=== PATIENT | male | born 1960 | race Caucasian/White ===

== ENCOUNTER 2018-04-08 19:31 | Emergency (ER) | payer OTHER ==
[~2018-04-08] VITALS: Ht 188 cm; Wt 64.0 kg
[~2018-04-08 19:31] MED LIST: CITALOPRAM HBR10 MG PO; COMPAZINE10 MG PO; MARINOL10 MG PO; METOPROLOL SUCC50 MG PO; OMEPRAZOLE40 M1 PO; ONDANSETRON HCL4 MG PO; PROBIOTIC1 EAC4 PO; TRAMADOL HCL50 MG PO; TRAZODONE HCL100 MG PO; [UNRECOGNIZED DRUG - REMARK]
[2018-04-08 20:11] LABS: HEMATOCRIT 43.6 % (38.0-50.0); MCHC 34.4 G/DL (30.0-36.0); MCV 90.1 FL (86-99); PLATELET COUNT 267 K/uL (156-360); RBC DIS.WIDTH-CV 16.2 % (11.8-14.6); RED BLOOD COUNT 4.84 M/uL (4.00-5.50); WHITE BLOOD COUNT 12.8 K/uL (4.1-10.2)
[2018-04-08 20:31] LABS: ALBUMIN 3.4 g/dL (3.2-4.8)
[2018-04-08 20:32] LABS: CHLORIDE 98 mEq/L (99-109); POTASSIUM 4.2 mEq/L (3.7-5.4); SODIUM 138 mEq/L (136-147)
[2018-04-08 20:34] LABS: GLUCOSE 112 mg/dL (70-99); TOTAL PROTEIN 7.1 g/dL (6.4-8.3)
[2018-04-08 20:36] LABS: TOTAL BILIRUBIN 3.4 mg/dL (0.0-1.0)
[2018-04-08 20:37] LABS: ALKALINE PHOSPHATASE 1390 IU/L (3-129)
[2018-04-08 20:38] LABS: CREATININE 0.6 mg/dL (0.6-1.3); GFR ESTIMATE (CALCULATED) > 59 mL/min/ (58.99-99999)
[2018-04-08 20:39] LABS: AST (GOT) 198 IU/L (2-34); UREA NITROGEN (BUN) 17 mg/dL (9-23)
[2018-04-08 20:41] LABS: ALT (GPT) 162 IU/L (3-49); LIPASE 43 U/L (1.0-51.0)
[2018-04-08 22:59] LABS: INTER. NORMALIZED RATIO 1.2
[2018-04-08] MEDS ORDERED: ROXICODONE5 MG PO (23:55)
[2018-04-09] MEDS ORDERED: ZOFRAN ODT4 MG PO (00:14)
[2018-04-09 00:34] VITALS: BP 134/95
[2018-04-09] MEDS ORDERED: COMPAZINE10 MG PO (16:30)
== END 2018-04-09 00:35 | disposition home or self-care (01) ==
LOC: EME 19:31
PROVIDERS: Physician Assistant
DX: R18.8 Other ascites (principal); I10 Essential (primary) hypertension; Z85.05 Personal history of malignant neoplasm of liver; F32.9 Major depressive disorder, single episode, unspecified; F17.200 Nicotine dependence, unspecified, uncomplicated; Z79.891 Long term (current) use of opiate analgesic; Z85.118 Personal history of other malignant neoplasm of bronchus and lung; Z85.038 Personal history of other malignant neoplasm of large intestine; Z92.21 Personal history of antineoplastic chemotherapy
CPT/HCPCS: 80053; 81003; 83690; 85027; 85610; 99281; 99285; J2270

== ENCOUNTER → 2018-04-11 | Outpatient (CLI) | payer OTHER ==
[~2018-04-11] MED LIST changes: +ROXICODONE5 MG PO; +ZOFRAN ODT4 MG PO
[2018-04-11 11:02] LABS: BODY FLUID PROTEIN < 3.0 G/DL
== END | disposition home or self-care (01) ==
LOC: RAD 08:32
PROVIDERS: Anesthesiology
PROC: 0W9G3ZZ Drainage of Peritoneal Cavity, Percutaneous Approach (ICD-10-PCS; principal; 2018-04-11)
DX: R18.8 Other ascites (principal); C18.9 Malignant neoplasm of colon, unspecified; C78.7 Secondary malignant neoplasm of liver and intrahepatic bile duct; C78.00 Secondary malignant neoplasm of unspecified lung
CPT/HCPCS: 49083; 84157; 87070; 87075; 87205

== ENCOUNTER 2018-04-12 11:13 | Emergency (ER) | payer OTHER ==
[~2018-04-12] VITALS: Ht 188 cm; Wt 64.5 kg
[2018-04-12 12:18] LABS: BASOPHIL (%) 0.4 % (0-1); BASOPHIL COUNT 0.1 K/uL (0-0.1); EOSINOPHIL (%) 0.1 % (0-5); HEMATOCRIT 44.6 % (38.0-50.0); HEMOGLOBIN 15.4 G/DL (12.5-16.6); IMMATURE GRANULOCYTE (%) 0.7 % (0.0-0.7); LYMPHOCYTE (%) 4.4 % (15-42); LYMPHOCYTE COUNT 0.8 K/uL (1.0-2.8); MCH 30.7 PG (29.0-34.0); MCHC 34.5 G/DL (30.0-36.0); MONOCYTE (%) 8.6 % (3-12); MONOCYTE COUNT 1.6 K/uL (0-0.8); NEUTROPHIL (%) 85.8 % (45-76); NEUTROPHIL COUNT 16.1 K/uL (1.8-6.4); PLATELET COUNT 286 K/uL (156-360); RBC DIS.WIDTH-SD 51.1 % (39-53); RED BLOOD COUNT 5.01 M/uL (4.00-5.50); WHITE BLOOD COUNT 18.7 K/uL (4.1-10.2)
[2018-04-12 12:28] LABS: ALBUMIN 2.9 g/dL (3.2-4.8); CHLORIDE 97 mEq/L (99-109); POTASSIUM 4.6 mEq/L (3.7-5.4); SODIUM 133 mEq/L (136-147)
[2018-04-12 12:29] LABS: MAGNESIUM 1.7 mg/dL (1.3-2.7)
[2018-04-12 12:31] LABS: GLUCOSE 98 mg/dL (70-99); TOTAL PROTEIN 6.3 g/dL (6.4-8.3)
[2018-04-12 12:35] LABS: ALKALINE PHOSPHATASE 1011 IU/L (3-129); CREATININE 0.6 mg/dL (0.6-1.3); GFR ESTIMATE (CALCULATED) > 59 mL/min/ (58.99-99999); TOTAL BILIRUBIN 4.6 mg/dL (0.0-1.0)
[2018-04-12 12:36] LABS: AST (GOT) 174 IU/L (2-34); UREA NITROGEN (BUN) 22 mg/dL (9-23)
[2018-04-12 12:37] LABS: ALT (GPT) 145 IU/L (3-49)
[2018-04-12 12:38] LABS: LIPASE 23 U/L (1.0-51.0)
[2018-04-12 14:36] LABS: APPEARANCE SL.HAZY ((CLEAR)); BILIRUBIN SMALL; BLOOD NEGATIVE; COLOR AMBER ((YELLOW)); GLUCOSE (STRIP) NEGATIVE; KETONES 5; LEUKOCYTES NEGATIVE; NITRITE NEGATIVE; PROTEIN (STRIP) >=500; SPECIFIC GRAVITY 1.025 (1.000-1.030)
[2018-04-12 15:21] LABS: EPITHELIAL CELLS NONE SEEN /HPF; MUCUS NONE SEEN /LPF; RED BLOOD CELLS NONE SEEN /HPF (0-5); WHITE BLOOD CELLS RARE /HPF (0-5)
[2018-04-12 15:22] LABS: BACTERIA RARE /HPF; UCUL ADDED? NO
[2018-04-12 19:15] VITALS: BP 118/94
== END 2018-04-12 19:33 | disposition hospice, home (50) ==
LOC: EME 11:13
PROVIDERS: Emergency Medicine
DX: R10.9 Unspecified abdominal pain (principal); K72.90 Hepatic failure, unspecified without coma; R18.8 Other ascites; E86.0 Dehydration; Z85.038 Personal history of other malignant neoplasm of large intestine; Z85.05 Personal history of malignant neoplasm of liver; Z85.118 Personal history of other malignant neoplasm of bronchus and lung; Z92.21 Personal history of antineoplastic chemotherapy; I10 Essential (primary) hypertension; F32.9 Major depressive disorder, single episode, unspecified; F17.200 Nicotine dependence, unspecified, uncomplicated
CPT/HCPCS: 76705; 80053; 81003; 83605; 83690; 83735; 85025; 99281; 99285; J3010; J7040